=== PATIENT | female | born 1940 | race Asian ===

== ENCOUNTER 2019-04-04 08:58 | Emergency (ER) | payer MEDICARE, OTHER ==
[~2019-04-04] VITALS: Ht 160 cm; Wt 53.6 kg
[~2019-04-04 08:58] MED LIST: CARSR60C PO; DIGO125T78 PO; ESTR0.6261 PO; FEXO-124 PO; FLEC100T2 PO; LOSA25TA96 PO; RANI150T44 PO; TRIA1TAB92 PO
[2019-04-04 09:28] LABS: CLARITY,URINE SLIGHTLY CLOUDY (Clear); COLOR,URINE RED (Yellow); GLUCOSE, URINE NEGATIVE (Neg); KETONES,URINE NEGATIVE (Neg); LEUKOCYTE ESTERASE ,URINE LARGE (Neg); NITRITES, URINE NEGATIVE (Neg); OCCULT BLOOD,URINE LARGE (Neg); PH,URINE 8.5 (4.8-8.0); PROTEIN,URINE NEGATIVE (Neg); UROBILINOGEN,URINE 0.2 E.U/dL (0.2-1.0)
[2019-04-04 09:36] LABS: UA COLLECTION TYPE CLN CATCH MIDSTREAM
[2019-04-04 09:37] LABS: BACTERIA,URINE NONE SEEN /HPF (Neg); MUCUS STRANDS NONE SEEN /LPF (Neg); RBC,URINE 50-100 /HPF (0-2); RENAL CELLS, URINE FEW /HPF; SQUAMOUS EPITHELIAL CELL,UR NONE SEEN /LPF (FEW)
[2019-04-04] MEDS ORDERED: TETanus/Pertussis (Acell)/Diphther VAC/PF (Tdap-Adult) 0.5ml syringe IM ONE (09:40)
[2019-04-04] MEDS ORDERED: CEPH-572 PO (10:46)
[2019-04-04] MEDS ORDERED: TRAM50TA2 PO (10:46)
[2019-04-04 10:50] VITALS: BP 109/61
== END 2019-04-04 11:14 | disposition home or self-care (01) ==
LOC: ER 08:58
DX: S80.211A Abrasion, right knee, initial encounter (principal); S80.212A Abrasion, left knee, initial encounter; S30.810A Abrasion of lower back and pelvis, initial encounter; N39.0 Urinary tract infection, site not specified; M25.512 Pain in left shoulder; M25.552 Pain in left hip; M54.5 Low back pain; L03.116 Cellulitis of left lower limb; I48.91 Unspecified atrial fibrillation; I25.10 Atherosclerotic heart disease of native coronary artery without angina pectoris; I10 Essential (primary) hypertension; I25.2 Old myocardial infarction; K21.9 Gastro-esophageal reflux disease without esophagitis; Z90.49 Acquired absence of other specified parts of digestive tract; Z90.710 Acquired absence of both cervix and uterus; Z88.5 Allergy status to narcotic agent; Z79.899 Other long term (current) drug therapy; W01.0XXA Fall on same level from slipping, tripping and stumbling without subsequent striking against object, initial encounter; Y93.89 Activity, other specified; Y92.89 Other specified places as the place of occurrence of the external cause; Y99.8 Other external cause status
CPT/HCPCS: 72100; 72170; 73560; 81001; 87077; 87088; 87186; 90471; 90715; 99284

== ENCOUNTER 2020-01-03 13:57 | Emergency (ER) | payer MEDICARE, OTHER ==
[~2020-01-03] VITALS: Ht 160 cm; Wt 54.2 kg
[~2020-01-03 13:57] MED LIST changes: -DIGO125T78 PO; +LAN0.125T PO; +RANI-648 PO; -RANI150T44 PO
[2020-01-03 14:54] LABS: BASOPHILS # (AUTO) 0.1 X10'3 (0-0.2); BASOPHILS % (AUTO) 0.9 % (0-1); EOSINOPHILS % (AUTO) 0.2 % (0-6); HEMATOCRIT 45.7 % (35.0-45.0); HEMOGLOBIN 15.8 g/dl (12.0-16.0); LYMPHOCYTES # (AUTO) 0.9 X10'3 (1.1-4.8); LYMPHOCYTES % (AUTO) 10.5 % (21-51); MEAN CORPUSCULAR HEMOGLOBIN 31.8 PG (27.0-31.0); MEAN CORPUSCULAR HGB CONC 34.6 g/dL (33.0-36.5); MEAN CORPUSCULAR VOLUME 91.8 FL (78-98); MEAN PLATELET VOLUME 7.7 FL (7.4-10.4); MONOCYTES # (AUTO) 0.6 X10'3 (0-0.9); MONOCYTES % (AUTO) 6.9 % (2-12); NEUTROPHILS # (AUTO) 7.2 X10'3 (1.8-7.7); NEUTROPHILS % (AUTO) 81.5 % (42-75); PLATELET COUNT 186 X10'3 (140-440); RED BLOOD COUNT 4.98 X10'6 (4.20-5.60); RED CELL DISTRIBUTION WIDTH 13.3 % (11.5-14.5); WHITE BLOOD COUNT 8.8 X10'3 (4.5-11.0)
[2020-01-03 15:12] LABS: ALANINE AMINOTRANSFERASE 33 U/L (12-78); ALBUMIN 3.6 G/DL (3.4-5.0); ALBUMIN/GLOBULIN RATIO 0.9 (1.1-1.5); ALKALINE PHOSPHATASE 67 IU/L (46-116); ANION GAP 5 (8-16); ASPARTATE AMINO TRANSFERASE 26 U/L (10-37); BILIRUBIN,TOTAL 0.2 MG/DL (0.1-1.0); BLOOD UREA NITROGEN 33 MG/DL (7-18); BUN/CREATININE RATIO 21.7 (6.6-38.0); CALCIUM 9.6 MG/DL (8.5-10.1); CHLORIDE 100 MMOL/L (99-107); CREATININE 1.52 MG/DL (0.40-0.90); GLUCOSE 134 MG/DL (70-104); POTASSIUM 4.3 MMOL/L (3.5-5.1); SODIUM 137 MMOL/L (135-145); TOTAL CARBON DIOXIDE 32.3 MMOL/L (24-32); TOTAL PROTEIN 7.5 G/DL (6.4-8.2); eGFR 33 ML/MIN
[2020-01-03] MEDS ORDERED: normal saline 1000ML IV soln IVB ONE ×2 (16:05→17:35)
[2020-01-03 16:25] LABS: CLARITY,URINE SLIGHTLY CLOUDY (Clear); COLOR,URINE STRAW (Yellow); GLUCOSE, URINE NEGATIVE (Neg); KETONES,URINE NEGATIVE (Neg); LEUKOCYTE ESTERASE ,URINE NEGATIVE (Neg); NITRITES, URINE NEGATIVE (Neg); OCCULT BLOOD,URINE NEGATIVE (Neg); PH,URINE 6.5 (4.8-8.0); PROTEIN,URINE NEGATIVE (Neg); UROBILINOGEN,URINE 0.2 E.U/dL (0.2-1.0)
[2020-01-03 16:26] LABS: UA COLLECTION TYPE CLN CATCH MIDSTREAM
[2020-01-03 16:36] LABS: BACTERIA,URINE FEW /HPF (Neg); MUCUS STRANDS NONE SEEN /LPF (Neg); RBC,URINE NONE SEEN /HPF (0-2); SQUAMOUS EPITHELIAL CELL,UR MODERATE /LPF (FEW); WBC,URINE 0-4 /HPF (0-4)
[2020-01-03 16:37] LABS: RENAL CELLS, URINE FEW /HPF
[2020-01-03 16:43] LABS: WAXY CASTS,URINE 0-3 /LPF (NEGATIVE)
[2020-01-03 19:30] VITALS: BP 138/72
== END 2020-01-03 19:35 | disposition home or self-care (01) ==
LOC: ER 13:59
DX: R42 Dizziness and giddiness (principal); J06.9 Acute upper respiratory infection, unspecified; R07.89 Other chest pain; I48.91 Unspecified atrial fibrillation; I25.10 Atherosclerotic heart disease of native coronary artery without angina pectoris; I10 Essential (primary) hypertension; I25.2 Old myocardial infarction; J44.9 Chronic obstructive pulmonary disease, unspecified; K21.9 Gastro-esophageal reflux disease without esophagitis; Z87.891 Personal history of nicotine dependence; Z90.49 Acquired absence of other specified parts of digestive tract; Z90.710 Acquired absence of both cervix and uterus; Z88.5 Allergy status to narcotic agent; Z79.899 Other long term (current) drug therapy; Z79.01 Long term (current) use of anticoagulants
CPT/HCPCS: 36415; 71045; 80053; 81001; 83880; 84484; 85025; 93005; 96360; 99285; J7030

== ENCOUNTER 2021-03-20 02:31 | Emergency (ER) | payer MEDICARE, OTHER ==
[~2021-03-20] VITALS: Ht 160 cm; Wt 54.0 kg
[2021-03-20] MEDS ORDERED: pantoprazole 40 MG vial IV ONE (02:45)
[2021-03-20] MEDS ORDERED: LIDOcaine Viscous 15ml cup MM PRN (02:45)
[2021-03-20] MEDS ORDERED: famotidine/PF 10 mg/ml inj IV ONE (02:45)
[2021-03-20] MEDS ORDERED: sucralfate 1gm/10ml UD suspension PO ONE (02:45)
[2021-03-20] MEDS ORDERED: mag hydrox/Alum hydrox/simeth 30ml oral suspension PO ONE (02:45)
[2021-03-20] MEDS ORDERED: sucralfate 1gm/10ml UD suspension PO SCH (02:45)
[2021-03-20 03:12] LABS: BASOPHILS % (AUTO) 0.1 % (0-1); EOSINOPHILS % (AUTO) 0.5 % (0-6); HEMATOCRIT 39.4 % (35.0-45.0); HEMOGLOBIN 13.4 g/dl (12.0-16.0); LYMPHOCYTES # (AUTO) 1.2 X10'3 (1.1-4.8); LYMPHOCYTES % (AUTO) 13.8 % (21-51); MEAN CORPUSCULAR HEMOGLOBIN 30.9 PG (27.0-31.0); MEAN CORPUSCULAR HGB CONC 34.1 g/dL (33.0-36.5); MEAN CORPUSCULAR VOLUME 90.6 FL (78-98); MEAN PLATELET VOLUME 8.1 FL (7.4-10.4); MONOCYTES # (AUTO) 0.6 X10'3 (0-0.9); MONOCYTES % (AUTO) 6.3 % (2-12); NEUTROPHILS # (AUTO) 7.1 X10'3 (1.8-7.7); NEUTROPHILS % (AUTO) 79.3 % (42-75); PLATELET COUNT 189 X10'3 (140-440); RED BLOOD COUNT 4.35 X10'6 (4.20-5.60); RED CELL DISTRIBUTION WIDTH 12.7 % (11.5-14.5)
[2021-03-20 03:26] LABS: ALANINE AMINOTRANSFERASE 19 U/L (12-78); ALBUMIN 3.8 G/DL (3.4-5.0); ALBUMIN/GLOBULIN RATIO 1.2 (1.1-1.5); ALKALINE PHOSPHATASE 52 IU/L (46-116); ANION GAP 9 (8-16); ASPARTATE AMINO TRANSFERASE 19 U/L (10-37); BILIRUBIN,TOTAL 0.3 MG/DL (0.1-1.0); BLOOD UREA NITROGEN 21 MG/DL (7-18); BUN/CREATININE RATIO 25.6 (6.6-38.0); CALCIUM 9.2 MG/DL (8.5-10.1); CHLORIDE 100 MMOL/L (99-107); CREATININE 0.82 MG/DL (0.40-0.90); GLUCOSE 120 MG/DL (70-104); LIPASE 131 U/L (73-393); SODIUM 140 MMOL/L (135-145); TOTAL CARBON DIOXIDE 31.1 MMOL/L (24-32); TOTAL PROTEIN 7.1 G/DL (6.4-8.2); eGFR 67 ML/MIN
[2021-03-20 03:30] LABS: POTASSIUM 2.9 MMOL/L (3.5-5.1)
[2021-03-20] MEDS ORDERED: OMEP20CA15 PO (04:05)
[2021-03-20] MEDS ORDERED: POTA20TA19 PO (04:05)
[2021-03-20] MEDS ORDERED: ONDA4TAB6 PO (04:05)
[2021-03-20] MEDS ORDERED: thiamine 100mg tablet PO ONE (04:05)
[2021-03-20] MEDS: potassium Cl 20 mEq SR tablet PO ONE ×2 (04:34→04:37)
[2021-03-20] MEDS ORDERED: POTASSIUM BICARB 20meq eff tab 20 MEQ TABLET.EFF PO ONE (04:45)
[2021-03-20] MEDS ORDERED: ondansetron/PF 4mg/2ml inj IV ONE (04:50)
[2021-03-20 05:21] VITALS: BP 145/76
== END 2021-03-20 05:27 | disposition home or self-care (01) ==
LOC: ER 02:32
DX: K21.9 Gastro-esophageal reflux disease without esophagitis (principal); R11.2 Nausea with vomiting, unspecified; R10.13 Epigastric pain; I48.91 Unspecified atrial fibrillation; I10 Essential (primary) hypertension; I25.10 Atherosclerotic heart disease of native coronary artery without angina pectoris; I25.2 Old myocardial infarction; J44.9 Chronic obstructive pulmonary disease, unspecified; Z90.49 Acquired absence of other specified parts of digestive tract; Z90.710 Acquired absence of both cervix and uterus; Z79.899 Other long term (current) drug therapy; Z88.8 Allergy status to other drugs, medicaments and biological substances
CPT/HCPCS: 36415; 71045; 80053; 83690; 83735; 83880; 84484; 85025; 93005; 96374; 96375; 99285; C9113; J2405; J3490

== ENCOUNTER 2021-05-10 12:46 | Emergency (ER) | payer MEDICARE, OTHER ==
[~2021-05-10] VITALS: Ht 160 cm; Wt 54.5 kg
[~2021-05-10 12:46] MED LIST changes: +OMEP20CA15 PO; +ONDA4TAB6 PO
[2021-05-10 12:58] VITALS: BP 171/88
[2021-05-10 13:31] LABS: BASOPHILS % (AUTO) 0.6 % (0-1); EOSINOPHILS % (AUTO) 0.9 % (0-6); HEMATOCRIT 39.3 % (35.0-45.0); HEMOGLOBIN 13.5 g/dl (12.0-16.0); LYMPHOCYTES # (AUTO) 1.3 X10'3 (1.1-4.8); LYMPHOCYTES % (AUTO) 27.8 % (21-51); MEAN CORPUSCULAR HEMOGLOBIN 30.3 PG (27.0-31.0); MEAN CORPUSCULAR HGB CONC 34.4 g/dL (33.0-36.5); MEAN CORPUSCULAR VOLUME 88.3 FL (78-98); MEAN PLATELET VOLUME 7.6 FL (7.4-10.4); MONOCYTES # (AUTO) 0.4 X10'3 (0-0.9); MONOCYTES % (AUTO) 8.3 % (2-12); NEUTROPHILS # (AUTO) 2.9 X10'3 (1.8-7.7); NEUTROPHILS % (AUTO) 62.4 % (42-75); PLATELET COUNT 208 X10'3 (140-440); RED BLOOD COUNT 4.45 X10'6 (4.20-5.60); RED CELL DISTRIBUTION WIDTH 12.7 % (11.5-14.5); WHITE BLOOD COUNT 4.6 X10'3 (4.5-11.0)
[2021-05-10 13:48] LABS: ALANINE AMINOTRANSFERASE 20 U/L (12-78); ALBUMIN 3.6 G/DL (3.4-5.0); ALKALINE PHOSPHATASE 64 IU/L (46-116); ANION GAP 7 (8-16); ASPARTATE AMINO TRANSFERASE 16 U/L (10-37); BILIRUBIN,TOTAL 0.2 MG/DL (0.1-1.0); BLOOD UREA NITROGEN 26 MG/DL (7-18); BUN/CREATININE RATIO 34.7 (6.6-38.0); CALCIUM 8.7 MG/DL (8.5-10.1); CHLORIDE 100 MMOL/L (99-107); CREATININE 0.75 MG/DL (0.40-0.90); GLUCOSE 120 MG/DL (70-104); POTASSIUM 3.4 MMOL/L (3.5-5.1); SODIUM 138 MMOL/L (135-145); TOTAL CARBON DIOXIDE 30.9 MMOL/L (24-32); TOTAL PROTEIN 7.1 G/DL (6.4-8.2); eGFR 74 ML/MIN
== END 2021-05-10 17:15 | disposition home or self-care (01) ==
LOC: ER 12:46
DX: R10.13 Epigastric pain (principal); K21.9 Gastro-esophageal reflux disease without esophagitis; R07.89 Other chest pain; I48.91 Unspecified atrial fibrillation; I25.10 Atherosclerotic heart disease of native coronary artery without angina pectoris; I10 Essential (primary) hypertension; I25.2 Old myocardial infarction; J44.9 Chronic obstructive pulmonary disease, unspecified; Z90.89 Acquired absence of other organs; Z90.710 Acquired absence of both cervix and uterus; Z88.8 Allergy status to other drugs, medicaments and biological substances; Z79.899 Other long term (current) drug therapy
CPT/HCPCS: 36415; 71045; 80053; 83880; 84484; 85025; 93005; 99285

== ENCOUNTER 2023-07-19 03:03 | Emergency (ER) | payer MEDICARE, OTHER ==
[~2023-07-19] VITALS: Ht 160 cm; Wt 54.5 kg
[~2023-07-19 03:03] MED LIST changes: -FEXO-124 PO; +FEXO-271 PO
[2023-07-19 03:09] VITALS: BP 110/71; PULSE 60; RESP 18; TEMP 98.5; O2SAT 95
[2023-07-19 04:04] LABS: STREP A SCREEN NEGATIVE (Neg)
== END 2023-07-19 04:39 | disposition home or self-care (01) ==
LOC: ER 03:04
DX: J06.9 Acute upper respiratory infection, unspecified (principal); Z20.822 Contact with and (suspected) exposure to COVID-19; I11.0 Hypertensive heart disease with heart failure; J44.9 Chronic obstructive pulmonary disease, unspecified; K21.9 Gastro-esophageal reflux disease without esophagitis; Z88.5 Allergy status to narcotic agent; Z88.8 Allergy status to other drugs, medicaments and biological substances; Z79.899 Other long term (current) drug therapy
CPT/HCPCS: 36415; 71045; 87081; 87502; 87503; 87811; 87880; 99284

== ENCOUNTER 2025-08-07 19:07 | Emergency (ER) | payer MEDICARE, OTHER ==
[~2025-08-07] VITALS: Ht 160 cm; Wt 54.8 kg
[~2025-08-07 19:07] MED LIST changes: -FEXO-271 PO; +FEXO-404 PO; +LOSA-415 PO; -LOSA25TA96 PO
[2025-08-07 19:33] VITALS: BP 154/60; PULSE 71; TEMP 97.5; O2SAT 97
--- NOTE | 2025-08-07 19:45 | ELECTROCARDIOGRAPH REPORT ---
[facility] Test Date: 2025-08-07 Test Time: 19:43:45 Pat Name: ESAU CANTU Department: [facility]-ER Patient ID: [facility]-[id number] Room: Gender: F Recruitment Intern: : 1940 Requested By: LOR RAMIREZ Order Number: [id number] Reading MD: Dr. Dante Chris Measurements Intervals [place] Rate: 69 P: 73 IN: 203 QRS: 171 QRSD: 109 T: 52 QT: 438 QTc: 470 Interpretive Statements Sinus rhythm Atrial premature complex Probable right ventricular hypertrophy Lateral infarct, old Baseline wander in lead(s) V3 Electronically Signed On 08-18-2025 22:20:[address] Dante Chris Please click the below link to view image of tracing.
[2025-08-07 19:56] LABS: MEAN PLATELET VOLUME 7.2 FL (7.4-10.4); RED CELL DISTRIBUTION WIDTH 13.3 % (11.5-14.5)
--- NOTE | 2025-08-07 20:06 | RADIOLOGY REPORT ---
CHEST RADIOGRAPH Indication: CP Technique: Single frontal view of the chest was obtained Comparison: DI CHEST,SINGLE VIEW on DOS: 10/18/24, DI CHEST,SINGLE VIEW on DOS: 07/19/23, CHEST,SINGLE VIEW on DOS: 05/10/21 FINDINGS: Lines and Tubes: None Lungs: No focal consolidation. Hyperinflation of the lungs. Pleura: No effusion. No pneumothorax. Cardiomediastinal contours: Unremarkable Bones: No acute osseous abnormality. IMPRESSION: No acute cardiopulmonary disease. Hyperinflation of the lungs.
[2025-08-07 20:16] LABS: CREATININE 0.71 MG/DL (0.40-0.90); PRO BRAIN NATRIURETIC PEPTIDE 87 PG/ML (0-450); TOTAL CARBON DIOXIDE 30.5 MMOL/L (24-32); eCRCL 49 ML/MIN; eGFR 78 ML/MIN
--- NOTE | 2025-08-07 21:05 | Physician Documentation ---
History of Present Illness General Chief Complaint: Multiple Medical Complaints Stated Complaint: MULTIPLE MEDICAL COMPLAINTS Time Seen by MD: 21:00 Primary Medical Doctor: Dr. Berg History of Present Illness Initial Comments The patient is an 84-year-old female complains of right wrist pain. Patient denies any trauma. Patient states she has pain to the right wrist and any pressure on the wrist or any movement of the wrist causes significant pain she states the pain is 10/10. She also states she has had recent atrial fibrillation episodes she currently denies any chest pain. She patent she denies any history of gout she denies any trauma to that right wrist and she denies any recent fevers chills nausea or vomiting. She states she was twisting a water bottle and she thinks this may have injured that wrist. Patient has a history of arthritis. Medication Reconciliation Allergies: Coded Allergies: hydrocodone (Unverified Adverse Reaction, Mild, SICK, 10/18/24) hydromorphone (Unverified Adverse Reaction, Mild, sick, 10/18/24) Scheduled Digoxin (Digitek), 1 TAB PO DAILY, (Reported) Diltiazem Hcl SR* (Cardizem SR*), 1 CAP PO PRN, (Reported) Estrogens,Conjugated* (Premarin*), 1 TAB PO DAILY, (Reported) Fexofenadine Hcl* (Estee*), 1 TAB PO DAILY, (Reported) Flecainide Acetate (Flecainide Acetate), 1 TAB PO Q12H, (Reported) Losartan Potassium* (Cozaar*), 2 TAB PO DAILY, (Reported) Omeprazole (Omeprazole), 2 CAP PO BID Ranitidine HCl (Zantac), 1 TAB PO Q12H, (Reported) Triamterene/Hydrochlorothiazid (Maxzide 75-50 Tablet), 0.5 EACH PO DAILY, (Reported) Scheduled PRN Ondansetron Hcl (Zofran), 1 TAB PO Q6H PRN for nausea/vomiting Past Medical History Past Medical History: Atrial Fibrillation, Coronary Artery Disease, H ypertension, Myocardial Infarction, Asthma, COPD, Bowel Obstruction, GERD Past Surgical History: appendectomy, hysterectomy Alcohol Use: None Drug Use: none Lives with: Spouse Lives In: Home Occupation: retired Physical Exam Physical Exam Vital Signs: Temperature: 97.5, Heart Rate: 71, Respiratory Rate: 16, BP: 154/60, Pulse Oximetry: 97, Weight: 54.800 Oxygen Flow Rate: 0 Physical Exam VITALS: Reviewed and as above. GENERAL: Alert, no apparent distress. HEENT: Normocephalic, atraumatic, PERRL, EOMI, dry mucosa, no erythema RESPIRATORY: Lungs clear, normal breath sounds, no respiratory distress. CHEST: No accessory muscle use, no retractions CV: Regular rate, rhythm, no edema, no murmur, No: JVD GI: Soft, non-tender, bowels sounds present, no rebound, guarding, or rigidity BACK: No CVA tenderness, or swelling MUSCULOSKELETAL: Patient has some wrist volar swelling and tenderness on the right side she has no significant erythema or warmth. She has pain with any range of motion of the wrist. There is no deformity. Distal neurovascular is intact patient has swelling and tenderness over the flexor tendons just proximal to the wrist joint SKIN: Warm and dry, no rash NEURO: Oriented x4, No motor or sensory deficit PSYCH: Normal mood and affect, no agitation Progress Results/Orders Results/Orders Orders - LOR DWYER MD Chest,Single View (08/07/25 19:39) Monitor (08/07/25 19:39) Saline Lock (08/07/25 19:39) Oxygen (08/07/25 19:39) Wrist, Complete (3vw Min) (08/07/25 ) Completed Orders - LOR DWYER MD Chest,Single View (08/07/25 19:39) Cbc/Diff (08/07/25 19:39) BMP (08/07/25 19:39) PBNP (08/07/25 19:39) Electrocardiogram (08/07/25 19:39) Hs Troponin I W Calculations (08/07/25 19:39) Wrist, Complete (3vw Min) (08/07/25 ) Triamcinolone Acet 40mg/Ml Inj (Kenalog- (08/07/25 21:15) Bupivacaine 0.5% W/Epi/Pf (Sensorcaine-E (08/07/25 21:14) Vital Signs 08/07/25 08/07/25 19:33 21:45 Temp 97.5 Pulse 71 Resp 16 16 B/P (MAP) 154/60 Pulse Ox 97 O2 Flow Rate 0 Laboratory Tests Test 08/07/25 19:44 White Blood Count 8.0 Red Blood Count 4.41 Hemoglobin 13.3 Hematocrit 39.1 Mean Corpuscular Volume 88.6 Mean Corpuscular Hemoglobin 30.1 Mean Corpuscular Hemoglobin Concent 34.0 Red Cell Distribution Width 13.3 Platelet Count 191 Mean Platelet Volume 7.2 L Neutrophils (%) (Auto) 73.8 Lymphocytes (%) (Auto) 16.6 L Monocytes (%) (Auto) 8.4 Eosinophils (%) (Auto) 0.8 Basophils (%) (Auto) 0.4 Neutrophils # (Auto) 5.9 Lymphocytes # (Auto) 1.3 Monocytes # (Auto) 0.7 Eosinophils # (Auto) 0.1 Basophils # (Auto) 0.0 CBC Comment Sodium Level 132 L Potassium Level 3.3 L Chloride Level 95 L Carbon Dioxide Level 30.5 Anion Gap 7 L Blood Urea Nitrogen 24 H Creatinine 0.71 Estimated GFR/1.73 m2 78 BUN/Creatinine Ratio 33.8 H Glucose Level 139 H Calcium Level 8.9 Troponin I High Sensitivity 7 Pro-B-Type Natriuretic Peptide 87 Albumin 3.5 Chemistry Comments EKG/XRAY/CT/US/VASC/MRI Chest X-Ray : Additional Comments Patient: ESAU CANTU Medical Record: [id number] [facility] : 1940, Age: 84 Sex: Female Location: ER Patient Status: [facility] ER Service Date/Time: 08/07/251938 Ordering Physician: LOR DWYER MD Exam: CHEST,SINGLE VIEW CHEST RADIOGRAPH Indication: CP Technique: Single frontal view of the chest was obtained Comparison: DI CHEST,SINGLE VIEW on DOS: 10/18/24, DI CHEST,SINGLE VIEW on DOS: 07/19/23, CHEST,SINGLE VIEW on DOS: 05/10/21 FINDINGS: Lines and Tubes: None Lungs: No focal consolidation. Hyperinflation of the lungs. Pleura: No effusion. No pneumothorax. Cardiomediastinal contours: Unremarkable Bones: No acute osseous abnormality. IMPRESSION: No acute cardiopulmonary disease. Hyperinflation of the lungs. Electronically Signed by:CHAYITO JONES DO Date & Time: 08/07/252003 Dictated by: CHAYITO JONES DO Dictation date and time: 08/07/251955 Primary Care Provider: NO PRIMARY CARE PROVIDER cc: LOR DWYER MD ~ Medical Decision Making Findings The patient was verbally consented for trigger point injection of some steroids and bupivacaine over the region of swelling on her flexor aspect of her wrist. Patient had 5 cc of bupivacaine injected with 40 mg of Kenalog. Patient was inadvertently given a Kenalog IM shot by the nurse as well. The patient will be immobilized in a splint and discharged with instructions to return for worsening of her symptoms. EKG was interpreted by me as showing a sinus rhythm with a right axis deviation and Q-waves in I aVL and V two rate was 69 it was interpreted as an abnormal EKG Departure Time of Disposition: 22:19 Disposition: 01 HOME / SELF CARE / HOMELESS Impression: Primary Impression: Tendonitis Discharge Instructions: Wrist Pain, Adult Additional Instructions: Keep the wrist in a brace avoid excessive twisting or bending of the wrist. Use ibuprofen or Tylenol for pain. Return for worsening of your symptoms Referrals: NO PRIMARY CARE PROVIDER (PCP) Signature Scribe Signature: no scribe Attestation: The note accurately reflects work and decisions made by me.Lor Dwyer MD 08/10/25 09:41 LOR DWYER MD Aug 07, 2025 21:05
--- NOTE | 2025-08-07 21:32 | RADIOLOGY REPORT ---
CLINICAL INDICATION: Pain. TECHNIQUE: Right WRIST CMPLDI WRIST, COMPLETE (3VW MIN) Comparison: None FINDINGS/IMPRESSION: : There is no evidence of acute fracture or dislocation. Soft tissues are unremarkable.
[2025-08-07 21:45] VITALS: RESP 16
[2025-08-07] MEDS: triamcinolone acetonide 40mg/ml inj IJ ONE (21:56)
[2025-08-07] MEDS: BUPIVAcaine 0.5% W/EPI /PF 10ml vial IJ STA (21:57)
== END 2025-08-07 22:49 | disposition home or self-care (01) ==
LOC: ER 19:07
DX: M77.9 Enthesopathy, unspecified (principal); M79.18 Myalgia, other site; R06.02 Shortness of breath; R07.9 Chest pain, unspecified; I10 Essential (primary) hypertension; K21.9 Gastro-esophageal reflux disease without esophagitis; I25.10 Atherosclerotic heart disease of native coronary artery without angina pectoris; I48.91 Unspecified atrial fibrillation; J44.9 Chronic obstructive pulmonary disease, unspecified; M19.90 Unspecified osteoarthritis, unspecified site; I25.2 Old myocardial infarction; Z88.5 Allergy status to narcotic agent; Z90.49 Acquired absence of other specified parts of digestive tract; Z90.710 Acquired absence of both cervix and uterus
CPT/HCPCS: 20552; 36415; 71045; 73110; 80048; 83880; 84484; 85025; 93005; 99285; J3301; J3490; L3908; J0665

== ENCOUNTER 2025-08-20 09:19 | Emergency (ER) | payer MEDICARE, OTHER ==
[~2025-08-20] VITALS: Ht 160 cm; Wt 56.0 kg
[2025-08-20 09:22] VITALS: TEMP 97.2; O2SAT 98
--- NOTE | 2025-08-20 09:27 | ELECTROCARDIOGRAPH REPORT ---
[facility] Test Date: 2025-08-20 Test Time: 09:25:17 Pat Name: ESAU CANTU Department: [facility] Patient ID: [facility]-[id number] Room: Gender: F [employer]lericulture Teacher: : 1940 Requested By: KIMMY VARELA Order Number: [id number] Reading MD: Dr. Dante Chris Measurements Intervals [place] Rate: 71 P: 74 PA: 188 QRS: 223 QRSD: 109 T: 64 QT: 434 QTc: 472 Interpretive Statements Sinus rhythm Consider left atrial enlargement Lateral infarct, old Baseline wander in lead(s) V2 Electronically Signed On 08-20-2025 18:50:[address] Dante Chris Please click the below link to view image of tracing.
[2025-08-20 10:11] LABS: MEAN PLATELET VOLUME 6.7 FL (7.4-10.4); RED CELL DISTRIBUTION WIDTH 13.6 % (11.5-14.5)
--- NOTE | 2025-08-20 10:20 | RADIOLOGY REPORT ---
AP portable chest Comparison: 08/07/2025 CLINICAL INDICATION: CP FINDINGS: Heart size is slightly enlarged with a tortuous aorta. No infiltrates or effusions. No destructive lesions of bone. IMPRESSION: 1. No acute cardiopulmonary pathology
[2025-08-20 10:30] LABS: CREATININE 0.88 MG/DL (0.40-0.90); PRO BRAIN NATRIURETIC PEPTIDE 125 PG/ML (0-450); TOTAL CARBON DIOXIDE 32.8 MMOL/L (24-32); eCRCL 39 ML/MIN; eGFR 61 ML/MIN
--- NOTE | 2025-08-20 10:41 | Physician Documentation ---
History of Present Illness ~ Chief Complaint: Palpitations Stated Complaint: ANXIETY Time Seen by MD: 09:26 Primary Medical Doctor: Dr. Berg Source: patient Mode of Arrival: POV Exam Limitations: no limitations HPI Chief Complaint: Nervous feeling, epigastric pain, chest pain Caveat: None Independent Historians: None History of Present Illness: Patient is an 84-year-old woman with a history of HTN but no history of coronary artery disease. Patient has been having intermittent episodes over the last couple of months of upper abdominal discomfort radiating up into her chest. Patient states that she feels nervous and describes chest discomfort that has currently 6/10. Became severe very early this morning. Patient had similar pain yesterday but it was not as severe. Last night the pain returned severe and she went to bed at 10:00 p.m. with the pain. Patient states that she had difficulty coming in because she cares for her who has Parkinson's. She has had associated nausea but no vomiting. No shortness a breath. No lower abdominal pain. No fever. No cough, no vomiting or diarrhea. Patient states that her heart feel shaky. Review of systems: All systems were reviewed and are negative except for what is indicated in the history of present illness. Past Medical History: HTN, atrial fibrillation, CAD, COPD, GERD, suppose it history of GA. however the patient states that she does not have a history of coronary artery disease. Past Surgical History: Hysterectomy, appendectomy Social History: Cares for has been 247 at home with Parkinson's, no tobacco use, no alcohol use, no drug use Medications: Reviewed as documented Nursing Notes Allergies: Reviewed as documented in Nursing Notes Medication Reconciliation Allergies: Coded Allergies: ciprofloxacin (Unverified Allergy, Unknown, 08/20/25) hydrocodone (Unverified Adverse Reaction, Mild, SICK, 10/18/24) hydromorphone (Unverified Adverse Reaction, Mild, sick, 10/18/24) Scheduled Digoxin (Digitek), 1 TAB PO DAILY, (Reported) Diltiazem Hcl SR* (Cardizem SR*), 1 CAP PO PRN, (Reported) Estrogens,Conjugated* (Premarin*), 1 TAB PO DAILY, (Reported) Fexofenadine Hcl* (Estee*), 1 TAB PO DAILY, (Reported) Flecainide Acetate (Flecainide Acetate), 1 TAB PO Q12H, (Reported) Losartan Potassium* (Cozaar*), 2 TAB PO DAILY, (Reported) Omeprazole (Omeprazole), 2 CAP PO BID Ranitidine HCl (Zantac), 1 TAB PO Q12H, (Reported) Triamterene/Hydrochlorothiazid (Maxzide 75-50 Tablet), 0.5 EACH PO DAILY, (Reported) Scheduled PRN Ondansetron Hcl (Zofran), 1 TAB PO Q6H PRN for nausea/vomiting Past Medical History Past Medical History: Atrial Fibrillation, Coronary Artery Disease, Hypertension, Myocardial Infarction, Asthma, COPD, Bowel Obstruction, GERD Past Surgical History: appendectomy, hysterectomy Alcohol Use: None Drug Use: none Lives with: Spouse Lives In: Home Occupation: retired Review of Systems All Other Systems at this time: Reviewed and Negative ROS Patient denies any other acute symptoms other than above. All other systems are negative Physical Exam Vital Signs: RN Vital Signs have been reviewed: Yes, Temperature: 97.2, Source: Oral, Heart Rate: 70, Respiratory Rate: 16, BP: 148/61, Pulse Oximetry: 98, Weight: 56.000 Pulse Oximetry Reflects: adequate oxygenation Physical Exam General Appearance: Mild distress HEENT: Normal OP, moist oral mucosa, PERRL, EOMI Neck: supple, normal ROM, trachea midline Pulmonary: No respiratory distress, CTA, BS equal Cardiac: RRR, no murmur, rub or gallop, GI: nondistended, soft, mild epigastric and right upper quadrant tenderness, normal bowel sounds, no guarding, no rebound Extremities: normal ROM, no swelling, non-tender Skin: intact, dry, warm, no rashes Neuro: AAOx3, speech is clear, no focal motor weakness Psych: normal affect, good eye contact, no apparent hallucination, normal speech Progress Results/Orders Results/Orders Orders - KIMMY VARELA MD Chest,Single View (08/20/25 09:21) Monitor (08/20/25 09:21) Saline Lock (08/20/25 09:21) Oxygen (08/20/25 09:21) Ultrasound Of Abdomen (08/20/25 11:16) Completed Orders - KIMMY VARELA MD Chest,Single View (08/20/25 09:21) Cbc/Diff (08/20/25 09:21) BMP (08/20/25 09:21) PBNP (08/20/25 09:21) Electrocardiogram (08/20/25 09:21) Hs Troponin I W Calculations (08/20/25 09:21) Hs Troponin I W Calculations (08/20/25 11:21) Ondansetron Inj. (Zofran 4mg/2ml Vial) (08/20/25 10:45) Potassium Cl Sr Tablet (K-Dur Tablet) (08/20/25 11:15) Ultrasound Of Abdomen (08/20/25 11:16) Medications Received in ER Medications (Trade) Dose Ordered Sig/Carolee Route PRN Reason Start Time Stop Time Status Last Admin Dose Admin (Zofran 4mg/2ml vial) 4 mg ONCE ONCE IV 08/20/25 10:45 08/20/25 10:46 DC 08/20/25 11:18 4 MG (K-DUR tablet) 40 meq ONCE ONCE PO 08/20/25 11:15 08/20/25 11:16 DC 08/20/25 11:18 40 MEQ Vital Signs 08/20/25 08/20/25 08/20/25 08/20/25 09:22 11:00 11:30 11:52 Temp 97.2 Pulse 70 64 68 Resp 16 16 13 13 B/P (MAP) 148/61 133/59 (83) 138/81 (100) Pulse Ox 98 08/20/25 08/20/25 12:10 13:17 Pulse 63 63 Resp 16 16 B/P (MAP) 128/98 (108) 128/98 Laboratory Tests Test 08/20/25 09:56 08/20/25 11:52 White Blood Count 5.1 Red Blood Count 4.39 Hemoglobin 13.6 Hematocrit 39.6 Mean Corpuscular Volume 90.4 Mean Corpuscular Hemoglobin 31.1 H Mean Corpuscular Hemoglobin Concent 34.4 Red Cell Distribution Width 13.6 Platelet Count 220 Mean Platelet Volume 6.7 L Neutrophils (%) (Auto) 63.7 Lymphocytes (%) (Auto) 27.5 Monocytes (%) (Auto) 8.2 Eosinophils (%) (Auto) 0.3 Basophils (%) (Auto) 0.3 Neutrophils # (Auto) 3.2 Lymphocytes # (Auto) 1.4 Monocytes # (Auto) 0.4 Eosinophils # (Auto) 0.0 Basophils # (Auto) 0.0 CBC Comment Sodium Level 136 Potassium Level 2.7 *L Chloride Level 97 L Carbon Dioxide Level 32.8 H Anion Gap 6 L Blood Urea Nitrogen 15 Creatinine 0.88 Estimated GFR/1.73 m2 61 BUN/Creatinine Ratio 17.0 Glucose Level 122 H Calcium Level 9.0 Troponin I High Sensitivity 7 8 Pro-B-Type Natriuretic Peptide 125 Albumin 3.5 Chemistry Comments Troponin I High Sens Percent Delta 14 Troponin I Hi Sens Absolute Change 1 Medical Decision Making Findings Differential diagnosis includes but is not limited to: Acute coronary syndrome, biliary colic, cholelithiasis, acute cholecystitis, pancreatitis, cardiac dysrhythmia, PVCs, electrolyte abnormalities EKG independent interpretation: Performed at 9:25 a.m.. Normal sinus rhythm, heart rate 71, northwest axis, left atrial enlargement, Q-waves in V1 and V2 Chest x-ray, single view, indication: Chest pain Independent interpretation: Lungs are hyperinflated without infiltrates or effusions. Normal mediastinum, normal cardiac silhouette. No acute cardiopulmonary process Limited abdominal ultrasound, indication: Right upper quadrant abdominal pain, epigastric pain Impression: 1. No sonographic evidence of gallstones or acute cholecystitis. Laboratory data independent interpretation: CBC: Unremarkable CMP: Potassium is low at 2.7, Troponin: 7 Pro BNP: 125 Emergency department course/medical decision-making: Patient is a 84-year-old woman who presents with nonspecific upper abdominal pain and chest pain. Cause for her symptoms is unknown. Patient states that she has had stress test almost a year ago from Dr. Clark. I can not rule out an acute coronary syndrome or a cardiac cause. Patient's gallbladder appears un remarkable an ultrasound. Do not suspect biliary cause. Recommend admission for further cardiac workup. However the patient is refusing because he she needs to care for her who has Parkinson's. Patient will follow up with Dr. Clark this week. She states she has an appointment on September 05 however I recommended she call his office Friday to be seen sooner. Departure Time of Disposition: 11:50 Disposition: 01 HOME / SELF CARE / HOMELESS Impression: Primary Impression: Epigastric abdominal pain Additional Impression: Chest pain of unknown etiology Condition: Improved Discharge Instructions: Abdominal Pain, Adult, [id number], Nonspecific Chest Pain, Adult, [id number] Additional Instructions: FOLLOW UP WITH DR. CLARK THIS WEEK. CAUSE FOR YOUR SYMPTOMS IS UNKNOWN. RETURN TO THE EMERGENCY DEPARTMENT IF YOU HAVE RECURRENT OR WORSENING SYMPTOMS. Education Educated: Patient Educated regarding: diagnosis, treatment Signature Scribe Signature: NO SCRIBE Attestation: NO SCRIBE KIMMY VARELA MD Aug 20, 2025 10:41
[2025-08-20] MEDS: potassium Cl 20 mEq SR tablet PO ONE (11:18)
[2025-08-20] MEDS: ondansetron/PF 4mg/2ml inj IV ONE (11:18)
--- NOTE | 2025-08-20 12:05 | RADIOLOGY REPORT ---
INDICATION: Abdominal Pain R/O Gallbladder TECHNIQUE: Multiple real-time sonographic images were obtained of the right upper quadrant. COMPARISON: None FINDINGS: The liver demonstrates homogeneous echotexture without focal mass lesions. The liver measures 12.5 cm. There is no intrahepatic or extrahepatic ductal dilatation. The common duct measures 0.3 cm. The gallbladder is without evidence of stone. Small amount of gallbladder sludge is seen. The gallbladder wall measures 0.2 cm and is within normal limits. The right kidney measures 9.6 cm. The right kidney is normal in contour, size, and shape. The echogenicity is normal. There is no hydronephrosis. Simple cyst is seen measuring up to 2.3 cm. The pancreas is not well visualized due to overlying bowel gas. IMPRESSION: 1. No sonographic evidence of gallstones or acute cholecystitis.
[2025-08-20 13:17] VITALS: BP 128/98; PULSE 63; RESP 16
== END 2025-08-20 12:00 | disposition home or self-care (01) ==
LOC: ER 09:19
DX: R07.9 Chest pain, unspecified (principal); R10.13 Epigastric pain; I10 Essential (primary) hypertension; F41.9 Anxiety disorder, unspecified; I25.10 Atherosclerotic heart disease of native coronary artery without angina pectoris; K21.9 Gastro-esophageal reflux disease without esophagitis; J44.9 Chronic obstructive pulmonary disease, unspecified; I25.2 Old myocardial infarction; I48.91 Unspecified atrial fibrillation; Z90.710 Acquired absence of both cervix and uterus; Z90.49 Acquired absence of other specified parts of digestive tract; Z88.5 Allergy status to narcotic agent; Z88.1 Allergy status to other antibiotic agents; Z79.899 Other long term (current) drug therapy
CPT/HCPCS: 36415; 71045; 76700; 80048; 83880; 84484; 85025; 93005; 96374; 99285; J2405

== ENCOUNTER 2025-11-04 08:25 | Outpatient (CLI) | payer MEDICARE, OTHER ==
[2025-10-26 14:41] LABS: CREATININE 0.79 MG/DL (0.40-0.90); TOTAL CARBON DIOXIDE 32.7 MMOL/L (24-32); eGFR 69 ML/MIN
[~2025-11-04 08:25] MED LIST changes: +iohexol 300mg/ml 100ml inj. ONE
--- NOTE | 2025-11-04 09:38 | RADIOLOGY REPORT ---
EXAM: CT CT ABDOMEN PELVIS W/ IV CONTRAST History: UNSPECIFIED ABDMINAL PAIN Comparison Study: US ULTRASOUND OF ABDOMEN on DOS: 08/20/25 Exam Date: 11/04/2025 08:49 AM Radiation Dose Information: CT Dose: CTDI volume is 8 mGy. Dose-length product is 356 mGy*cm TECHNIQUE: During the uneventful, intravenous administration of contrast material, multislice data acquisition was obtained through the abdomen and pelvis. The data set was subsequently reconstructed into axial images. Images were reviewed on a work station using a combination of axial and multiplanar using a variety of window levels and settings. FINDINGS: Lower chest: Bibasilar atelectasis/scarring. Liver: Mild hypodensity along the falciform ligament likely fat deposition. Biliary system: Mild intrahepatic and extrahepatic biliary ductal dilatation , with CBD measuring up to 8 mm. Spleen: Unremarkable Pancreas: Mild pancreatic ductal dilatation measuring up to 4 mm. Adrenals: Unremarkable. Kidneys and ureters: No hydronephrosis. Bilateral simple appearing renal cysts and subcentimeter hypodensities too small to characterize but likely additional cysts. Punctate nonobstructing right renal calculus. Bowel: No obstruction. Bladder: Unremarkable Reproductive organs: No abnormal mass. Lymph nodes: Unremarkable. Peritoneum: Unremarkable Vessels: Patent major intra-abdominal vasculature. Bones and soft tissue: No aggressive osseous lesion IMPRESSION: Mild biliary and pancreatic ductal dilatation. While this could be age related,correlate with laboratory analysis to assess for possible biliary obstruction secondary to mass or choledocholithiasis. MRCP can be also obtained if indicated. Punctate nonobstructing right renal calculus.
== END 2025-11-04 23:59 | disposition home or self-care (01) ==
LOC: RAD 08:25
PROVIDERS: ATTEND Student in an Organized Health Care Education/Training Program
DX: N20.0 Calculus of kidney (principal); R10.9 Unspecified abdominal pain; J98.11 Atelectasis; N32.89 Other specified disorders of bladder; N28.1 Cyst of kidney, acquired
CPT/HCPCS: 36415; 74177; 80048; Q9967